=== PATIENT | female | born 1985 | race Caucasian/White ===

== ENCOUNTER 2016-06-19 19:17 | Inpatient (IN) | payer OTHER ==
--- NOTE | ~2016-06-19 | HP ---
Unit #: [id number] #: [id number] Patient: ROSEMARY MONTERO [id number] [place] [address] [id number] I MR#: [id number] NAME: ROSEMARY MONTERO ROOM: P176 Age: 31 Sex: F Admission Date: 06/19/2016 : 1985 Attending Physician: Hoang Choudhary M.D. Admitting Physician: Hoang Choudhary M.D. Primary Care Physician: Primary Care Physician No HISTORY AND PHYSICAL HISTORY OF PRESENT ILLNESS Rosemary is a 31 year old admitted to [facility] because of her polysubstance abuse which includes Suboxone and benzodiazepines. PAST MEDICAL HISTORY 1. Long history of illicit substance abuse to include Suboxone, benzodiazepines and IV drugs. 2. History of withdrawal seizures. 3. Hyperthyroidism, newly diagnosed. She has not followed up with counselor supervisor. 4. Fatty liver. PAST SURGICAL HISTORY 1. T & A. 2. section x 1. ALLERGIES No known drug allergies. SOCIAL HISTORY Smokes one pack per day. Denies alcohol. Admits to a history of polysubstance abuse to include IV drugs. FAMILY HISTORY Medically noncontributory. REVIEW OF SYSTEMS CONSTITUTIONAL: No fever or chills. HEENT: Denies any sore throat, ear pain or runny nose. CARDIOVASCULAR: Denies chest pain, irregular heart rhythm or palpitations. CHEST: Denies shortness of breath or cough. No hemoptysis. GASTROINTESTINAL: Denies nausea, vomiting, diarrhea or chronic constipation. ENDOCRINE: Denies history of increased thirst or urination. No recent significant weight loss or gain. GENITOURINARY: Denies dysuria, frequency, or hematuria. SKIN: Denies any rashes. HEMATOLOGIC: Denies history of increased bleeding or bruising. MUSCULOSKELETAL: Denies any hot, swollen joints. No generalized muscle pain. NEUROLOGIC: Denies problems with vision or speech. No frequent, severe Unit #: [id number] #: [id number] Patient: ROSEMARY MONTERO headaches. No numbness, tingling or weakness in any extremities. Denies loss of bladder or bowel control. CURRENT MEDICATIONS Detox protocol PHYSICAL EXAMINATION GENERAL: Alert, well-nourished, in no apparent distress. VITAL SIGNS: Blood pressure 100/62, heart rate 80, respirations 16, temperature 98.6. WEIGHT: 131 pounds. HEIGHT: 5'7". SKIN: Warm and dry without rash or lesion. HEENT: Normocephalic. TMs not viewed. Oral and nasal passages clear. Conjunctivae clear. Pupils equal, round and reactive to light and accommodation. Extraocular movements intact. NECK: Supple without lymphadenopathy or thyromegaly. HEART: Regular rate and rhythm without murmur. LUNGS: Clear. ABDOMEN: Soft, nontender. : Not done. EXTREMITIES: No evidence of cyanosis, clubbing or edema. Moves all extremities without focal deficit. NEUROLOGICAL: Grossly within normal limits. Cranial Nerves: II: Visual serna are intact. III, IV AND : Extraocular movements are intact. Pupils are equal, round and reactive to light. V: Facial sensation is grossly normal. VII: Facial movements and expression are normal. VIII: Auditory acuity grossly intact. IX, X: Uvula is midline. Phonation is normal. XI: Patient shrugs shoulders and turns head normally. XII: Tongue protrudes in the midline. Sensory and Motor Function: Sensory and motor sensation is grossly normal. Motor: moves all extremities well. Coordination: Gait is normal. Deep Tendon Reflexes: Intact. IMPRESSION 1. Psychiatric admission 2. Liver enzymes are elevated on admission. Would screen for hepatitis C. 3. Patient reports recent diagnosis of hyperthyroidism. On admission TSH was 0.02 with a Free T4 2.16. The patient knows she needs to followup with counselor supervisor at discharge. RECOMMENDATIONS As above. MEDICAL PROGNOSIS Good. MEDICAL CONDITION Stable. Dictated by... Farhana Johnson PMynorA.-C. for Unit #: [id number] #: [id number] Patient: ROSEMARY MONTERO Otis Mo/elizabeth TD: 06/20/2016 21:21 JOB #: [id number] HISTORY AND PHYSICAL Page 1 of 1 X Farhana Johnson HISTORY AND PHYSICAL
--- NOTE | ~2016-06-19 | DS ---
Unit #: [id number] #: [id number] Patient: ROSEMARY MONTERO [id number] [place] [address] [id number] I MR#: [id number] NAME: ROSEMARY MONTERO ROOM: P176 Age: 31 Sex: F Admission Date: 06/19/2016 : 1985 Discharge Date: 06/23/2016 Attending Physician: Hoang Choudhary M.D. Primary Care Physician: Primary Care Physician No DISCHARGE SUMMARY REASON FOR ADMISSION The patient is a 31-year-old white female, admitted with recurrent abuse of opioids. HOSPITAL COURSE The patient was admitted to the [facility] unit and placed on routine detoxification protocol for opioids and benzodiazepines. She had also been abusing illicitly obtained Xanax. Her detox was a smooth and uneventful one. She participated actively within the therapeutic milieu. She was begun on Bactrim for urinary tract infection. By 06/23/2016, the patient requested discharge and it was so ordered. FINAL DIAGNOSES Opioid use disorder, sedative hypnotic use disorder, urinary tract infection. DISPOSITION ON DISCHARGE The patient is discharged on the following medications; Bactrim DS one tablet b.i.d. for urinary tract infection, dispensed 2 with no refills. DISCHARGE INSTRUCTIONS No dietary or physical restrictions were placed on the patient at the time of discharge. FOLLOWUP Followup will take place through the auspices of community mental health resources. PROGNOSIS The patient's prognosis is considered fair. Dictated by... Hoang Choudhary M.D. CB/rene TD: 06/23/2016 22:36 JOB #: [id number] Unit #: [id number] #: [id number] Patient: ROSEMARY MONTERO DISCHARGE SUMMARY Page 1 of 1 X Hoang Choudhary MD X DISCHARGE SUMMARY
--- NOTE | ~2016-06-19 | PN ---
Unit #: [id number] #: [id number] Patient: ROSEMARY MONTERO [id number] [facility] [address] [place] [address] [id number] I MR#: [id number] NAME: ROSEMARY MONTERO ROOM: 76 Age: 31 Sex: F Admission Date: 06/19/2016 : 1985 Attending Physician: Hoang Choudhary M.D. Admitting Physician: Hoang Choudhary M.D. Primary Care Physician: Primary Care Physician Sheila DE DIOS PROGRESS NOTES DATE 06/22/2016 DISCUSSION The patient is active within the therapeutic milieu. She continues to complain of mild symptoms of opioid withdrawal but appears significantly improved from admission. Should she sustain progress, discharge will likely take place tomorrow. Dictated by... Hoang Choudhary M.D. CB/chayito TD: 06/22/2016 14:07 JOB #: [id number] [facility] PROGRESS NOTES Page 1 of 1 X Hoang Choudhary MD X PROGRESS NOTE
--- NOTE | ~2016-06-19 | CO ---
Unit #: [id number] #: [id number] Patient: ROSEMARY MONTERO [id number] [place] [address] [id number] I MR#: [id number] NAME: ROSEMARY MONTERO ROOM: P176 Age: 31 Sex: F Admission Date: 06/19/2016 : 1985 Attending Physician: Hoang Choudhary M.D. Primary Care Physician: Primary Care Physician No Consultation Date: 06/21/2016 CONSULTATION REPORT SUBJECTIVE Rosemary is a 31-year-old who has complained of urgency and frequency with urination. Urinalysis was abnormal on admission. We have been asked to assess and treat. OBJECTIVE GENERAL: Alert and well nourished, in no apparent distress. VITAL SIGNS: Blood pressure 120/70, heart rate 80, respirations 16, temperature 98.6. ABDOMEN: Soft, nontender. BACK: Negative CVA tenderness. DIAGNOSTIC STUDIES LABORATORY RESULTS: Admission urinalysis 4+ bacteria, 50 to 100 wbc's. ASSESSMENT Urinary tract infection. PLAN Bactrim DS one p.o. b.i.d. x3 days. Dictated by... Luis Melton/rene TD: 06/22/2016 19:02 JOB #: [id number] CONSULTATION REPORT Page 1 of 1 X Farhana Johnson CONSULTATION REPORT
--- NOTE | ~2016-06-19 | PA ---
Unit #: [id number] #: [id number] Patient: ROSEMARY MONTERO [id number] [place] [address] [id number] I MR#: [id number] NAME: ROSEMARY MONTERO ROOM: P176 Age: 31 Sex: F Admission Date: 06/19/2016 : 1985 Date of Assessment: 06/20/2016 Attending Physician: Hoang Choudhary M.D. Admitting Physician: Hoang Choudhary M.D. Primary Care Physician: Primary Care Physician No PSYCHIATRIC ASSESSMENT IDENTIFYING INFORMATION The patient is a 31-year-old single white female admitted to the [facility] unit with a recent relapse of abuse of Xanax and Suboxone. CHIEF COMPLAINT I relapsed INFORMANT The patient, reliability is good. HISTORY OF PRESENT ILLNESS The patient is a 31-year-old white female who reports a four month history of relapse of use of Suboxone and illicitly obtained Xanax. The patient reports great shame over this and admitted to her this she had begun using again. He brought her to this facility. The patient has a history of previous treatment at this facility and had maintained sobriety for a significant period of time prior to this episode. She is currently denying suicidal or homicidal ideation but expresses a great deal of contrition and shame over her recent relapse. She states that her reason for relapse was the stressful nature of her job. 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 The patient was last hospitalized to this facility in 2011 since that time she has lost custody of children secondary to her substance use issues. She is currently denying suicidal or homicidal ideation or any psychotic symptoms. She denies any new medical or health issues. PAST PSYCHIATRIC HISTORY As above. The patient was last hospitalized at this facility in 2011 under similar circumstances. PAST MEDICAL HISTORY Noncontributory MEDICATIONS None. ALLERGIES None. FAMILY HISTORY The patient denies family history of psychiatric illness. SOCIAL HISTORY Unit #: [id number] #: [id number] Patient: ROSEMARY MONTERO The patient lives with her . She is employed as a marketing area manager. She reports substance use noted previously and is a smoker. MENTAL STATUS EXAMINATION At this time reveals the patient to be a well-developed, well-nourished white female, appearing her stated age. She is in moderate physical distress related to opioid withdrawal during interview. She is awake, alert, and oriented in all spheres. Her mood is dysphoric. Her affect constricted. Speech is generally relevant and coherent. There are no gross deficits in memory or cognition noted. Intelligence is judged to be in the average range based on fund of knowledge. The patient is cooperative throughout the interview. She is currently reporting no suicidal or homicidal ideation or psychotic features. Her judgment and insight appear to be reasonably intact. ASSETS AND LIABILITIES ASSETS: Motivation for change. LIABILITIES: None noted. DIAGNOSTIC IMPRESSION 1. Opioid use disorder. 2. Sedative hypnotic use disorder. TREATMENT PLAN The patient remains hospitalized for safety and stabilization. A routine detoxification protocol for both opioids and sedative hypnotics has been initiated. The patient will participate in appropriate myers and milieu activities with an estimate length of stay in the hospital of three to five days with followup to take place in the chemical dependence intensive outpatient program provided by this facility. Dictated by... Hoang Choudhary M.D. JAIR/elizabeth TD: 06/21/2016 00:00 JOB #: [id number] PSYCHIATRIC ASSESSMENT Page 1 of 1 X Hoang Choudhary MD X PSYCHIATRIC ASSESSMENT
--- NOTE | ~2016-06-19 | PN ---
Unit #: [id number] #: [id number] Patient: ROSEMARY MONTERO [id number] [facility] [address] [place] [address] [id number] I MR#: [id number] NAME: ROSEMARY MONTERO ROOM: [facility] Age: 31 Sex: F Admission Date: 06/19/2016 : 1985 Attending Physician: Hoang Choudhary M.D. Admitting Physician: Hoang Choudhary M.D. Primary Care Physician: Primary Care Physician Sheila DE DIOS PROGRESS NOTES DATE 06/21/2016 DISCUSSION The patient is in brighter spirits and active within the therapeutic milieu though she continues to complain of significant symptoms of opioid withdrawal. She has not yet asked for her nicotine patch but has been informed that it is available for her. Dictated by... Hoang Choudhary M.D. CB/chiquis TD: 06/21/2016 16:32 JOB #: [id number] [facility] PROGRESS NOTES Page 1 of 1 X Hoang Choudhary MD PROGRESS NOTE
[~2016-06-19 19:17] MED LIST: AMOXICILLIN500 M1 PO; CELEXA PO; CIPRO PO; FLAGYL PO; KLONOPIN PO; KLONOPIN1 MG PO; LAMICTAL ODT100 MG PO; LAMICTAL PO; LAMICTAL100 MG PO; METHADONE PO; METRONIDAZOLE PO; PRENATAL VITAMI1 TA3; VENTOLIN INHALER; VICODIN 5/500 T1 TAB PO
[2016-06-20 09:19] LABS: BASOPHIL% 0.6 % (0-2.5); EOSINOPHIL# 0.4 X10e3 (0-0.7); EOSINOPHIL% 8.3 % (0.0-7.0); HEMATOCRIT 38.7 % (35.0-45.0); LYMPHOCYTE# 1.9 X10e3 (1.0-3.5); LYMPHOCYTE% 38.1 % (17.0-45.0); MEAN CELL VOLUME 91.1 FL (83-96); MEAN CORPUSCULAR HEMOGLOBIN 30.5 PG (28-34); MEAN CORPUSCULAR HGB CONC 33.5 g/dL (30-36); MEAN PLATELET VOLUME 8.2 FL (6.5-11.5); MONOCYTE# 0.5 X10e3 (0-1.0); MONOCYTE% 9.2 % (3.0-12.0); NEUTROPHIL# 2.2 X10e3 (1.5-7.1); NEUTROPHIL% 43.8 % (40-75); PLATELET COUNT 198 X10e3 (140-420); RED BLOOD COUNT 4.25 X10e (3.90-5.30); RED CELL DISTRIBUTION WIDTH 12.4 % (11.0-15.5)
[2016-06-20 09:53] LABS: DIFF IND NO
[2016-06-20 13:23] LABS: ALBUMIN SERUM 3.6 g/dL (3.5-5.0); BILIRUBIN,TOTAL 0.7 mg/dL (0.2-2.0); BUN/CREATININE RATIO 18.33; CALCIUM SERUM 9.6 mg/dL (8.4-10.2); CREATININE SERUM 0.6 mg/dL (0.6-1.4); GLOM FILT RATE Estimated 123.2 mL/min (>60); POTASSIUM 3.6 mmol/L (3.5-5.1); PROTEIN TOTAL SERUM 6.5 g/dL (6.0-8.3)
[2016-06-20 13:30] LABS: THYROID STIMULATING HORMONE 0.02 uIU/ml (0.34-5.60)
[2016-06-20 13:36] LABS: FREE THYROXIN (T4) 2.16 ng/dL (0.58-1.64)
[2016-06-21 09:34] LABS: URINE APPEARANCE TURBID; URINE BILIRUBIN NEG (NEG); URINE BLOOD NEG (NEG); URINE COLOR DK YELLOW; URINE GLUCOSE NEG (NEG); URINE KETONE 1+ (NEG); URINE LEUKOCYTE ESTERASE 3+ (NEG); URINE NITRATE NEG (NEG); URINE PH 5.5 (5-8); URINE PROTEIN NEG (NEG); URINE UROBILINOGEN 0.2 MG/DL (NEG)
[2016-06-21 09:37] LABS: URINE BACTERIA AUWI 4+ (NEGATIVE); URINE SQUAMOUS EPITHELIAL CELL MOD /[HPF]; UWBCS1 AUWI 50-100 (0-5)
[2016-06-21 09:48] LABS: URINE MUCUS PRESENT
[2016-06-21 09:51] LABS: URINE AMORPHOUS SEDIMENT AMORP URATES
[2016-06-21 10:09] LABS: AMPHETAMINE NEG (NEG); BARBITURATES NEG (NEG); BENZODIAZEPINES POS (NEG); COCAINE NEG (NEG); MARIJUANA POS (NEG); OPIATES NEG (NEG); TRICYCLIC ANTIDEPRESSANTS NEG (NEG); U METHADONE NEG (NEG)
[2016-06-23 17:02] LABS: HA AB IGM (HEPPAN) Nonreactive (Nonreactive); HB CORE AB IGM (HEPPAN) Nonreactive (Nonreactive); HB S AG (HEPPAN) Nonreactive (Nonreactive); HEP C AB (HEPPAN) Reactive (Nonreactive)
== END 2016-06-23 16:20 | disposition home or self-care (01) | DRG 897 ==
LOC: P1E 19:17
PROVIDERS: Specialist
PROC: HZ2ZZZZ Detoxification Services for Substance Abuse Treatment (ICD-10-PCS; principal; 2016-06-19)
DX: F11.23 Opioid dependence with withdrawal (principal); F13.20 Sedative, hypnotic or anxiolytic dependence, uncomplicated; K76.0 Fatty (change of) liver, not elsewhere classified; N39.0 Urinary tract infection, site not specified; F17.210 Nicotine dependence, cigarettes, uncomplicated; E05.90 Thyrotoxicosis, unspecified without thyrotoxic crisis or storm
CPT/HCPCS: 80053; 80074; 80307; 81003; 84439; 84443; 84703; 85025; 86592; 87522; 87806